=== PATIENT | female | born 1945 | race African-American/Black ===

== ENCOUNTER → 2022-06-03 | Day surgery (SDC) | payer MEDICARE ==
[~2022-06-03] MED LIST: ACETAMINOPHEN 325MG TABLET PO PRN; AMLO1TAB39 PO; ASPI-1160 PO; ASPIRIN/SOD BICARB/CITRIC ACID 324MG TAB EFF ONE; ATORVASTATIN PO; DOXE10CA2 PO; ERGO500013 PO; FENTANYL CITRATE/PF 50MCG/ML 2ML VIAL ONE; FURO20TA4 PO; HEPARIN 1000 UNITS/ML 10ML ONE; IODIXANOL 320MG/ML 100 ML BOTTLE IV ONE; LEVO5TAB13 PO; LIDOCAINE HCL/PF 1% 10 MG/ML 5ML VIAL ONE; LIP40 PO; MECL-159 PO; MIDAZOLAM HCL 2 MG/2 ML VIAL ONE; MORPHINE SULFATE 2 MG/ML CPJ (NOT FOR IM USE) IV PRN; NALOXONE HCL 0.4MG/ML VIAL IV PRN; OLME40TA11 PO; ONDANSETRON HCL 4MG/2ML INJ IV PRN; SPIR25TA6 PO; VERA80TA7 PO
== END | disposition home or self-care (01) ==
LOC: CCL 07:46
PROVIDERS: ATTEND Specialist
DX: I25.10 Atherosclerotic heart disease of native coronary artery without angina pectoris (principal); E78.5 Hyperlipidemia, unspecified; I12.9 Hypertensive chronic kidney disease with stage 1 through stage 4 chronic kidney disease, or unspecified chronic kidney disease; N18.9 Chronic kidney disease, unspecified; I73.9 Peripheral vascular disease, unspecified; Z79.899 Other long term (current) drug therapy; Z88.2 Allergy status to sulfonamides; Z88.1 Allergy status to other antibiotic agents; Z88.8 Allergy status to other drugs, medicaments and biological substances; Z98.890 Other specified postprocedural states
CPT/HCPCS: 93458; 99152; 99153; C1769; C1893; J1644; J2250; J3010; J3490; Q9967; G0500